=== PATIENT | male | born 1995 | race Caucasian/White ===

== ENCOUNTER 2017-02-17 00:15 | Emergency (ER) | payer OTHER ==
[2017-02-17] MEDS ORDERED: MIDAZOLAM 2 MG/2 ML VIAL ONE ×2 (00:26→00:27)
[2017-02-17] MEDS ORDERED: MIDAZOLAM 2 MG/2 ML VIAL IM ONE (00:31)
[2017-02-17] MEDS ORDERED: NS 1,000 ML IV ONE ×2 (00:39→00:40)
[2017-02-17] MEDS ORDERED: MIDAZOLAM 2 MG/2 ML VIAL IVP ONE ×2 (00:49→01:12)
--- NOTE | 2017-02-17 00:54 | CPEKG ---
Heart Rate: 154 RR Interval: 390 P-R Interval: 100 QRSD Interval: 94 QT Interval: 260 QTC Interval: 416 P [place]: 45 QRS [place]: 0 T Wave [place]: 56 EKG Severity - BORDERLINE ECG - EKG Impression: SINUS TACHYCARDIA EKG Impression: LATERAL Q WAVES, PROBABLY NORMAL VARIATION EKG Impression: BORDERLINE T WAVE ABNORMALITIES Electronically Signed By: Vijaya Pastor 18-Feb-2017 06:50:34
--- NOTE | 2017-02-17 00:56 | EDPHY ---
H & P Stated Complaint: ams etoh fall Time Seen by Provider: 02/17/17 00:26 HPI/ROS: HPI The patient presents with alcohol and cocaine intoxication as well as head injury which occurred about an hour prior to presentation. His friend who brought him states that he was drinking alcohol and using cocaine tonight. He was then walking down a flight of stairs and hit his head. Since then, he has not been acting himself, having garbled speech and seemingly confused, thus they brought him in. REVIEW OF SYSTEMS Constitutional: No fever, no chills. Eyes: No discharge. ENT: No sore throat. Cardiovascular: No chest pain, no palpitations. Respiratory: No cough, no shortness of breath. Gastrointestinal: No abdominal pain, no vomiting. Genitourinary: No hematuria. Musculoskeletal: No back pain. Skin: No rashes. Neurological: No headache. PMHx: History of tonsillectomy Soc Hx: College student, positive alcohol and cocaine use PHYSICAL General Appearance: Alert, agitated, thrashing in the rney Eyes: Pupils equal and round no pallor or injection ENT, Mouth: Mucous membranes moist Respiratory: There are no retractions, lungs are clear to auscultation Cardiovascular: Tachycardic rate with regular rhythm Gastrointestinal: Abdomen is soft and non-tender, no masses, bowel sounds normal Neurological: Alert, speaking nonsensically moves all extremities Skin: Warm and dry, no rashes Musculoskeletal: Neck is supple non tender Extremities: symmetrical, full range of motion Psychiatric: The patient is agitated Source: Patient, Other Exam Limitations: Intoxication - Medical/Surgical History Hx Asthma: No Hx Chronic Respiratory Disease: No Hx Diabetes: No Hx Cardiac Disease: No Hx Renal Disease: No Hx Cirrhosis: No Hx Alcoholism: No Hx HIV/AIDS: No Hx Splenectomy or Spleen Trauma: No Other PMH: psh- tonsilectomy - Social History Smoking Status: Never smoked Constitutional: Initial Vital Signs Temperature (C) 36.9 C 02/17/17 00:23 Heart Rate 155 H 02/17/17 00:23 Respiratory Rate 20 02/17/17 00:23 Blood Pressure 151/93 H 02/17/17 00:23 O2 Sat (%) 94 02/17/17 00:23 O2 Delivery Mode Room Air O2 (L/minute) 2 Allergies/Adverse Reactions: No Known Allergies Allergy (Unverified 08/31/15 17:03) Medical Decision Making - Diagnostics Imaging Results: CT brain noncontrast, CT max face noncontrast, CT C-spine noncontrast are all negative, discussed with Dr. Rodriguez of Radiology. Differential Diagnosis: This is a 21-year-old male, using alcohol and cocaine tonight, sustaining a fall down concrete stairs about an hour prior to arrival, now presenting with altered mental status. His friend who is at the bedside says he is not making sense and not able to speak properly. He has signs of facial trauma. Differential diagnosis includes intracranial hemorrhage, alcohol intoxication, polysubstance abuse, concussion. In the emergency department, the patient was notably tachycardic, EKG was obtained and demonstrated normal sinus rhythm. He was given 2 L of IV fluid for presumed volume depletion. He required Versed because of his agitation. He was able to go through the CT scanner which demonstrated no acute injuries. After this, blood alcohol level returned at 470. - Data Points Laboratory Results: Laboratory Results 02/17/17 00:41 02/17/17 00:41 02/17/17 02/17/17 02/17/17 00:41 00:41 00:41 WBC 13.50 10^3/uL H 10^3/uL (3.80-9.50) RBC 5.67 10^6/uL 10^6/uL (4.40-6.38) Hgb 18.7 g/dL H g/dL (13.7-17.5) Hct 54.1 % H % (40.0-51.0) MCV 95.4 fL fL (81.5-99.8) MCH 33.0 pg pg (27.9-34.1) MCHC 34.6 g/dL g/dL (32.4-36.7) RDW 12.1 % % (11.5-15.2) Plt Count 329 10^3/uL 10^3/uL (150-400) MPV 9.7 fL fL (8.7-11.7) Neut % (Auto) 68.5 % % (39.3-74.2) Lymph % (Auto) 22.1 % % (15.0-45.0) [place] % (Auto) 8.0 % % (4.5-13.0) Eos % (Auto) 0.1 % L % (0.6-7.6) Baso % (Auto) 0.7 % % (0.3-1.7) Nucleat RBC Rel Count 0.0 % % (0.0-0.2) Absolute Neuts (auto) 9.25 10^3/uL H 10^3/uL (1.70-6.50) Absolute Lymphs (auto) 2.98 10^3/uL 10^3/uL (1.00-3.00) Absolute Monos (auto) 1.08 10^3/uL H 10^3/uL (0.30-0.80) Absolute Eos (auto) 0.01 10^3/uL L 10^3/uL (0.03-0.40) Absolute Basos (auto) 0.10 10^3/uL 10^3/uL (0.02-0.10) Absolute Nucleated RBC 0.00 10^3/uL 10^3/uL (0-0.01) Immature Gran % 0.6 % % (0.0-1.1) Immature Gran # 0.08 10^3/uL 10^3/uL (0.00-0.10) Sodium 151 mEq/L H mEq/L (134-144) Potassium 3.8 mEq/L mEq/L (3.5-5.2) Chloride 107 mEq/L mEq/L (97-110) Carbon Dioxide 11 mEq/l L mEq/l (22-31) Anion Gap 33 mEq/L H mEq/L (8-16) BUN 12 mg/dL mg/dL (7-23) Creatinine 1.2 mg/dL mg/dL (0.7-1.3) Estimated GFR > 60 Glucose 169 mg/dL H mg/dL (70-100) Calcium 10.3 mg/dL mg/dL (8.5-10.4) Total Bilirubin 0.7 mg/dL mg/dL (0.1-1.4) AST 32 IU/L IU/L (17-59) ALT 39 IU/L IU/L (21-72) Alkaline Phosphatase 96 IU/L IU/L (38-126) Total Protein 9.6 g/dL H g/dL (6.3-8.2) Albumin 5.9 g/dL H g/dL (3.5-5.0) Ethyl Alcohol 472 mg/dL H* mg/dL (0-10) Medications Given: Discontinued Medications Sodium Chloride (Ns) 1,000 mls @ 0 mls/hr IV ONCE ONE; Wide Open PRN Reason: Protocol Stop: 02/17/17 00:40 Last Admin: 02/17/17 00:40 Dose: 1,000 mls Sodium Chloride (Ns) 1,000 mls @ 0 mls/hr IV ONCE ONE; Wide Open PRN Reason: Protocol Stop: 02/17/17 00:41 Last Admin: 02/17/17 00:52 Dose: 1,000 mls Midazolam HCl (Versed) 4 mg IM EDNOW ONE Stop: 02/17/17 00:32 Last Admin: 02/17/17 00:32 Dose: 4 mg Midazolam HCl (Versed) 2 mg IVP EDNOW ONE Stop: 02/17/17 00:50 Last Admin: 02/17/17 00:52 Dose: 2 mg Midazolam HCl (Versed) 2 mg IVP EDNOW ONE Stop: 02/17/17 01:13 Last Admin: 02/17/17 01:22 Dose: 2 mg Departure - Departure Referrals: NONE *PRIMARY CARE P,. [Primary Care Provider] - As per Instructions
[2017-02-17 01:07] LABS: % IMMATURE GRANULYOCYTES 0.6 % (0.0-1.1); ABSOLUTE IMMATURE GRANULOCYTES 0.08 10^3/uL (0.00-0.10); ADD DIFF? NO; ADD MORPH? NO; ADD SCAN? NO; ATYPICAL LYMPHOCYTE FLAG 10 (0-99); FRAGMENT RBC FLAG 0 (0-99); HEMATOCRIT 54.1 % (40.0-51.0); HEMOGLOBIN 18.7 g/dL (13.7-17.5); LEFT SHIFT FLG 0 (0-99); LIPEMIA HEMOLYSIS FLAG 90 (0-99); MEAN CELL HEMOGLOBIN CONCENTR. 34.6 g/dL (32.4-36.7); MEAN CELL VOLUME 95.4 fL (81.5-99.8); MEAN PLATELET VOLUME 9.7 fL (8.7-11.7); PLATELET CLUMPS FLAG 0 (0-99); PLATELET COUNT 329 10^3/uL (150-400); RED BLOOD CELL COUNT 5.67 10^6/uL (4.40-6.38); RED CELL DISTRIBUTION WIDTH 12.1 % (11.5-15.2)
[2017-02-17 01:17] LABS: ALANINE AMINOTRANSFERASE 39 IU/L (21-72); ALKALINE PHOSPHATASE 96 IU/L (38-126); ANION GAP 33 mEq/L (8-16); ASPARTATE AMINOTRANSFERASE 32 IU/L (17-59); BILIRUBIN,TOTAL 0.7 mg/dL (0.1-1.4); CALCIUM 10.3 mg/dL (8.5-10.4); CARBON DIOXIDE 11 mEq/l (22-31); CHLORIDE 107 mEq/L (97-110); CREATININE 1.2 mg/dL (0.7-1.3); GLOMERULAR FILTRATION RATE > 60; GLUCOSE 169 mg/dL (70-100); POTASSIUM 3.8 mEq/L (3.5-5.2); SODIUM 151 mEq/L (134-144); TOTAL PROTEIN 9.6 g/dL (6.3-8.2)
[2017-02-17 01:23] LABS: ETHANOL SERUM 472 mg/dL (0-10)
[2017-02-17 01:39] LABS: ALBUMIN 5.9 g/dL (3.5-5.0)
[2017-02-17] MEDS ORDERED: HALOPERIDOL LACT 5 MG/ML INJ ONE (02:01)
[2017-02-17] MEDS ORDERED: HALOPERIDOL LACT 5 MG/ML INJ IVP ONE (02:24)
[2017-02-17 05:51] VITALS: BP 132/77; PULSE 108; RESP 18; TEMP 97.7; O2SAT 96
== END 2017-02-17 05:49 | disposition home or self-care (01) ==
DX: S09.90XA Unspecified injury of head, initial encounter (principal); R41.82 Altered mental status, unspecified; F10.121 Alcohol abuse with intoxication delirium; F14.129 Cocaine abuse with intoxication, unspecified; E86.9 Volume depletion, unspecified; W22.8XXA Striking against or struck by other objects, initial encounter; Y99.8 Other external cause status; Y93.01 Activity, walking, marching and hiking
CPT/HCPCS: 96374; G0480; J2250